=== PATIENT | female | born 1980 | race Caucasian/White ===

== ENCOUNTER 2017-07-30 23:18 | Day surgery (SDC) | payer SELFPAY ==
[2017-07-30 23:49] VITALS: BMI 21.9
--- NOTE | 2017-07-31 00:31 | PDOC.LDHP ---
Labor and Delivery H&P Chief complaint: abdominal pain HPI: 37 y/o at 21w0d, patient of Dr. Gauthier, presents with bilateral inguinal pain, suprapubic pain, and low back pain that radiates down her legs. She is also concerned that her "cervix is disappearing." She denies VB, LOF, ctx, UTI sx, or decreased FM. ROS neg for HEENT, cv, pulm, gi, gu, neuro, psych, skin, musculoskeletal, or constitutional symptoms other than mentioned above. OB History Details: 1 prior term 9 years ago. Current complications: other (ASB) Past Medical History: Umbilical hernia Current medications: pre-nishi vitamins Previous surgical history: none Allergies/Adverse Reactions: Allergies Allergy/AdvReac Type Severity Reaction Status Date / Time No Known Allergies Allergy Unverified 07/30/17 23:39 Social history: none - Physical Exam Vital signs reviewed and normal: yes General: NAD, resting Lungs: nonlabored breathing Abdomen: gravid Extremeties: no edema FHT: category 1 (160s) - Vaginal Exam cm dilated: 0 Effacement: 0% Station: -3 - Assessment 37 y/o at 21w0d with musculoskeletal discomforts of . status reassuring with +FHTs. - Plan -: Will send for UA since history of asymptomatic bacturia. D/c home with precautions. Advised to keep follow up appointment as scheduled or before then if needed.
[2017-07-31 01:13] LABS: Bilirubin Negative (Negative); Blood, Urine Negative (Negative); Clarity CLOUDY (Clear); Glucose, Urine (Dipstick) Negative (Negative); Leukocyte Negative (Negative); Nitrite Negative (Negative); Protein, Urine (Dipstick) Negative (Neg-Trace); Specific Gravity, Urine 1.014 (1.002-1.036); Urobilinogen 0.2 mg/dL (0.2-1.0); pH, Urine 7.5 (5.0-9.0)
[2017-07-31 01:15] LABS: Bacteria/HPF None Seen HPF (None Seen); Hyaline Casts/LPF 0-3 HYALINE CAST LPF (0-3 Hyaline); Pathc Cast-AUWi Flag 0.29 (0-2.49); RBC/HPF 0-3 HPF (0-3); Squamous Epithelial 0-3 HPF (0-3); WBC/HPF 0-3 HPF (0-3)
== END 2017-07-31 00:40 | disposition home or self-care (01) ==
LOC: L&D/OP 23:18
PROVIDERS: ATTEND Obstetrics & Gynecology
DX: O26.892 Other specified pregnancy related conditions, second trimester (principal); Z3A.21 21 weeks gestation of pregnancy; Z79.899 Other long term (current) drug therapy
CPT/HCPCS: 81001; 87086; 99282

== ENCOUNTER 2017-11-25 21:02 | Inpatient (IN) | payer OTHER ==
[~2017-11-25 21:02] MED LIST: Bupivacaine 0.25% HCL 30 ML VIAL ONE; ePHEDrine/0.9% NaCl/PF SYRINGE 50 mg/10 ml ONE
[2017-11-25 21:36] VITALS: BMI 26.3
[2017-11-25 21:45] LABS: Amnisure Test RUPTURE DETECTED (No Rupture)
[2017-11-25 21:46] LABS: Amnisure Internal Control QC ACCEPTABLE (ACCEPTABLE)
[2017-11-25] MEDS ORDERED: Promethazine HCl 25 MG/ML VIAL IM PRN (22:08)
[2017-11-25] MEDS ORDERED: Ondansetron HCl/PF 4 MG/2 ML Vial IVP PRN (22:08)
[2017-11-25] MEDS ORDERED: Butorphanol Tartrate 1 MG/ML VIAL SLOW IVP PRN (22:08)
[2017-11-25] MEDS ORDERED: Lidocaine 1% (PF) 30 ML VIAL SC PRN (22:08)
[2017-11-25] MEDS ORDERED: HYDROcodone/Acetaminophen 5/325 mg Tablet PO PRN ×2 (22:08)
[2017-11-25] MEDS ORDERED: Ibuprofen 800 MG TAB PO PRN (22:08)
[2017-11-25] MEDS ORDERED: NS / Oxytocin 40 units/1000ml 1,000 ML IV PRN (22:08)
[2017-11-25] MEDS ORDERED: Acetaminophen 500 MG TAB PO PRN (22:08)
[2017-11-25] MEDS ORDERED: Penicillin G Potassium 5 MILL.UNITS in Sodium Chloride 0.9% 100 ML IVPB SCH (22:15)
[2017-11-25] MEDS ORDERED: NS w/ Oxytocin 10 units 500 ML IV SCH (22:15)
[2017-11-25] MEDS ORDERED: Lactated Ringer's 1,000 ML IV SCH (22:15)
--- NOTE | 2017-11-25 22:16 | PDOC.LDHP ---
Labor and Delivery H&P Chief complaint: loss of fluid HPI: 37 yo WF c/o LOF since 5 pm today. Denies bleeding or decreased FM. Current gestational age (weeks): 37 Due date: 12/16/17 Dating criteria: last menstrual period Grav: 3 Para: 1 OB History Details: PNC with Dr. Gauthier w/o complications. Current complications: none Abnormal US findings: No Past Medical History: None Current medications: pre-nishi vitamins, other (Macrodantin) Previous surgical history: none Allergies/Adverse Reactions: Allergies Allergy/AdvReac Type Severity Reaction Status Date / Time No Known Allergies Allergy Unverified 07/30/17 23:39 Social history: none - Physical Exam Vital signs reviewed and normal: yes Abnormal vital signs: Initial BP= 140/96 General: NAD Lungs: nonlabored breathing Abdomen: gravid Extremeties: trace edema FHT: variability present [place] contractions every: No UCs seen - Vaginal Exam cm dilated: 3 Effacement: 50% Station: -1 - OB Labs Blood type: A RH: negative Antibody Screen: negative HIV: negative RPR: negative HEPSAg: negative 1 hour GCT: negative GBS: unknown - Assessment L&D Assessment: term rupture in membranes - Plan Plan: admit to L&D, labor augmentation if indicated, GBS antibiotic prophylaxis (Observe for onset of labor in next 2-3 hours, start pitocin if needed. Check labs, watch BP closely.)
[2017-11-25] MEDS: Lactated Ringer's 1,000 ML IV SCH (22:25)
[2017-11-25 22:45] LABS: Mean Corpuscular HGB CONC 35.5 g/dL (32.0-36.0); Mean Corpuscular Hemoglobin 33.9 pg (27.0-31.0); Mean Corpuscular Volume 95.3 fL (78.0-98.0); Mean Platelet Volume 7.5 fL (7.4-10.4); Platelet Count 216 thou/uL (130-400); RBC Distribution Width 12.5 % (11.5-14.5); Red Blood Cell (RBC) Count 3.54 mill/uL (4.20-5.40); White Blood Cell (WBC) Count 11.3 thou/uL (4.8-10.8)
[2017-11-25 22:46] LABS: Bilirubin Negative (Negative); Blood, Urine Negative (Negative); Clarity CLEAR (Clear); Glucose, Urine (Dipstick) Negative (Negative); Leukocyte Negative (Negative); Nitrite Negative (Negative); Protein, Urine (Dipstick) Negative (Neg-Trace); Specific Gravity, Urine 1.011 (1.002-1.036); Urobilinogen 0.2 mg/dL (0.2-1.0)
[2017-11-25 22:49] LABS: Bacteria/HPF None Seen HPF (None Seen); Hyaline Casts/LPF 0-3 HYALINE CAST LPF (0-3 Hyaline); Pathc Cast-AUWi Flag 0.58 (0-2.49); RBC/HPF 0-3 HPF (0-3); Squamous Epithelial 0-3 HPF (0-3); WBC/HPF 0-3 HPF (0-3)
[2017-11-25 23:01] LABS: ALT (SGPT) 10 U/L (8-55); AST (SGOT) 14 U/L (5-34); Albumin 3.5 g/dL (3.5-5.0); Alkaline Phosphatase 181 U/L (40-150); Anion Gap 16 mmol/L (10-20); BUN (Urea Nitrogen) 8 mg/dL (7.0-18.7); Bilirubin, Total 0.3 mg/dL (0.2-1.2); Calc. Creatinine Clearance 111 mL/min (70-130); Carbon Dioxide 19 mmol/L (22-29); Chloride 107 mmol/L (98-107); Estimated GFR-MDRD Greater than 90; Globulin 2.9 g/dL (2.4-3.5); Glucose 71 mg/dL (70-105); Potassium 3.5 mmol/L (3.5-5.1); Protein, Total 6.4 g/dL (6.0-8.3); Sodium 138 mmol/L (136-145)
--- NOTE | 2017-11-25 23:14 | PDOC.EVN ---
Event Note - Event Note Event Note: BPs remain elevated, now 150/96. Denies PANIAGUA or visual changes. CBC, LFTs and UA pending. Will start Mg now with pitocin to follow.
[2017-11-25 23:17] LABS: Syphilis Antibody Nonreactive (Nonreactive); Syphilis Antibody Index 0.04 S/CO (<1.00 Non-Reactive)
[2017-11-25] MEDS ORDERED: Magnesium Sulfate 20 GM/WATER 500 ML BAG IVPB SCH (23:30)
[2017-11-25] MEDS ORDERED: Magnesium Sulfate 20 gm/500 ml 20 GM/500 ML BAG IVPB SCH (23:50)
[2017-11-26 00:12] LABS: HBSAg Index 0.22 S/CO (0-0.99); HIV (1/2) Antibody/Antigen Non-Reactive (NonReactive); HIV 1/2 INDEX 0.09 S/CO (<1.00); Hep B Surf Ag Non-Reactive S/CO (NonReactive)
[2017-11-26] MEDS ORDERED: Bupivacaine 0.5% 20 ML, fentaNYL Citrate/PF 400 MCG in Sodium Chloride 0.9% 72 ML EPIDURAL SCH (03:00)
[2017-11-26] MEDS ORDERED: DISCONTINUE ALL PREVIOUS NARCOTICS FS SCH (03:00)
[2017-11-26] MEDS: Penicillin G 2.5 MILL.units 2.5 MILL.UNITS in Premix Bag 1 BAG IVPB SCH ×3 (03:02→16:09)
[2017-11-26] MEDS ORDERED: Naloxone HCl 0.4 mg/ml Vial IVP PRN ×2 (04:35)
[2017-11-26] MEDS ORDERED: ePHEDrine/0.9% NaCl/PF SYRINGE 50 mg/10 ml SLOW IVP PRN (04:35)
[2017-11-26] MEDS ORDERED: Lactated Ringer's 500 ML IV PRN (04:35)
[2017-11-26] MEDS ORDERED: diphenhydrAMINE 50 MG/ML VIAL IVP PRN (04:35)
[2017-11-26] MEDS ORDERED: Promethazine HCl 25 MG/ML VIAL IM PRN (04:35)
[2017-11-26] MEDS ORDERED: Eucerin (Mineral Oil/Petrolatum,White) 30 gm Jar TOP PRN (04:35)
[2017-11-26] MEDS ORDERED: Acetaminophen 325 MG TAB PO PRN (04:35)
[2017-11-26] MEDS ORDERED: Ondansetron HCl/PF 4 MG/2 ML Vial IVP PRN ×2 (04:35→15:15)
[2017-11-26] MEDS ORDERED: Communication Order-Pharmacy FS SCH (04:45)
[2017-11-26] MEDS ORDERED: fentaNYL Citrate/PF 400 MCG, Bupivacaine 0.5% 20 ML in Sodium Chloride 0.9% 72 ML EPIDURAL SCH (04:45)
--- NOTE | 2017-11-26 05:10 | PDOC.EVN ---
Event Note - Event Note Event Note: Pitocin started at [place]. Comfortable now with epidural. Bps much improved on Mg. Last exam /-2. Fhts reassuring. UCs q 4-5 mins.
[2017-11-26] MEDS: Lactated Ringer's 1,000 ML IV SCH ×2 (05:34→16:09)
--- NOTE | 2017-11-26 11:41 | PDOC.OPDEL ---
OB Operative/Delivery Note Delivery Dr/Surgeon: Ronald; Attending: Dr. Gauthier Pre-Delivery Diagnosis: ruptured membrane (term) Weeks gestation: 37 Anesthesia: epidural - Findings A Sex: male - 1 min: 8 - 5 min: 9 - Additional Findings/Plan Placenta delivered: spontaneous Repaired Obstetrical Laceration: episiotomy Estimated blood loss: 365 Compilations/Other Findings: Delivering Physician: Dr. Verma Attending: Abrahan Procedure: Spontaneous Vaginal Delivery Anesthesia: epidural EBL:365 ml Pre-op Diagnosis: 1. Term intrauterine 2. Prelabor rupture of membranes 3. Gestational Hypertension 4. Advanced Maternal Age Post-op Diagnosis: 1. Term intrauterine , delivered 2. Prelabor rupture of membranes 3. Gestational Hypertension 4. Advanced Maternal Age Indications: A 37 y/o female presents with rupture of membranes at term , admitted for PROM and induction of labor. Delivery Note: This is 37 yo F @ 37wks who delivered a viable M infant at 1123 on 11/26/17. Following an uneventful antepartum course, a vigorous male was delivered in the occipitoanterior position following a midline episiotomy. Anterior Shoulder and then remainder of the body delivered. Nuchal cord X2. The head was held down and mouth and nares were bulb suctioned. Cord clamped and cut and cord blood collected. Placenta delivered intact with a 3 vessel cord noted. Fundal massage was performed and the fundus was firm. First degree perineal laceration noted and repaired with a 2-0 chromic suture in the usual fashion with good approximation and hemostasis. Infant went to nursery in good condition for routine care. Apgars were 8/9 at 1 & 5 minutes, respectively. Patient tolerated delivery well and went to after routine recovery/care. Post delivery plan: routine recovery
[2017-11-26] MEDS ORDERED: Milk Of Magnesia 30 ML UDCUP PO PRN (15:15)
[2017-11-26] MEDS ORDERED: diphenhydrAMINE 25 MG CAP PO PRN (15:15)
[2017-11-26] MEDS ORDERED: Benzocaine/Menthol 20-0.5% 60 ML CAN TOP PRN (15:15)
[2017-11-26] MEDS ORDERED: NS / Oxytocin 40 units/1000ml 1,000 ML IV SCH (15:15)
[2017-11-26] MEDS ORDERED: HYDROcodone/Acetaminophen 5/325 mg Tablet PO PRN (15:15)
[2017-11-26] MEDS ORDERED: Lanolin Ointment 7 GM TUBE TOP PRN (15:15)
[2017-11-26] MEDS ORDERED: Zolpidem Tartrate 5 MG TAB PO PRN (15:15)
[2017-11-26] MEDS ORDERED: Preparation H Ointment 28 GM TUBE PR PRN (15:15)
[2017-11-26] MEDS ORDERED: Bisacodyl 10 MG SUPP PR PRN (15:15)
[2017-11-26] MEDS: HYDROcodone/Acetaminophen 5/325 mg Tablet PO PRN ×2 (15:56→21:49)
[2017-11-26] MEDS: Ferrous Sulfate 325 MG TAB PO SCH (17:44)
[2017-11-26] MEDS: Ibuprofen 800 MG TAB PO SCH (21:48)
[2017-11-26] MEDS: Docusate Calcium (SURFAK) 240 MG CAP PO SCH (21:48)
[2017-11-27] MEDS: Ibuprofen 800 MG TAB PO SCH ×3 (05:20→21:05)
[2017-11-27] MEDS: Docusate Calcium (SURFAK) 240 MG CAP PO SCH ×2 (08:22→21:05)
[2017-11-27] MEDS: Prenatal Vitamin 1 TAB PO SCH (08:22)
[2017-11-27] MEDS: Ferrous Sulfate 325 MG TAB PO SCH ×2 (08:22→10:51)
[2017-11-27] MEDS ORDERED: Measles/Mumps/Rubella 10 MCG/0.5 ML VIAL SC ONE (09:00)
[2017-11-27] MEDS ORDERED: Adacel (T-DAP) 0.5 ML VIAL IM ONE (09:00)
[2017-11-28] MEDS: Ibuprofen 800 MG TAB PO SCH (05:35)
--- NOTE | 2017-11-28 08:16 | PDOC.PP ---
Post Progress Note Post Day #: 2 PO intake tolerated: yes Flatus: yes Ambulation: yes Vital Signs (12 hours) Temp Pulse Resp BP 11/27/17 20:50 98.6 F 91 20 151/73 H Weight Weight 144 lb - Physical Examination General: NAD Cardiovascular: no m/r/g, RRR Respiratory: clear to auscultation bilaterally Abdominal: lochia, no distention Extremities: negative homans (B) Neurological: no gross focal deficits Psychiatric: A&Ox3, normal affect (begin labetalol. following bp at home. will fu as an outpatient) Result Diagrams: 11/25/17 22:35 11/25/17 22:35 Additional Labs: Post Labs Blood Type A NEGATIVE 11/25/17 22:35 Hep Bs Antigen Non-Reactive S/CO (NonReactive) 11/25/17 22:35
[2017-11-28] MEDS: Ferrous Sulfate 325 MG TAB PO SCH (08:20)
[2017-11-28 08:49] VITALS: BP 138/86; TEMP 97.9
[2017-11-28] MEDS ORDERED: Labetalol 100 MG TAB PO SCH (09:00)
[2017-11-28] MEDS: Prenatal Vitamin 1 TAB PO SCH (09:46)
[2017-11-28] MEDS: Docusate Calcium (SURFAK) 240 MG CAP PO SCH (09:47)
== END 2017-11-28 10:55 | disposition home or self-care (01) | DRG 775 ==
LOC: L&D/OP 21:02 → L&D 22:05 → 3SW 11-26 14:58
PROVIDERS: ADMIT Obstetrics & Gynecology; ATTEND Obstetrics & Gynecology
PROC: 3E033VJ Introduction of Other Hormone into Peripheral Vein, Percutaneous Approach (ICD-10-PCS; 2017-11-25)
PROC: 10E0XZZ Delivery of Products of Conception, External Approach (ICD-10-PCS; principal; 2017-11-26)
PROC: 0HQ9XZZ Repair Perineum Skin, External Approach (ICD-10-PCS; 2017-11-26)
PROC: 0W8NXZZ Division of Female Perineum, External Approach (ICD-10-PCS; 2017-11-26)
DX: O70.0 First degree perineal laceration during delivery (principal); O13.4 Gestational [pregnancy-induced] hypertension without significant proteinuria, complicating childbirth; Z3A.37 37 weeks gestation of pregnancy; O69.81X0 Labor and delivery complicated by cord around neck, without compression, not applicable or unspecified; Z37.0 Single live birth
CPT/HCPCS: 36415; 51702; 80053; 81001; 84112; 85027; 85461; 86780; 86850; 86870; 86900; 86901; 87340; 87389; 90384; 96372; J2001; J2540; J3010; J3475; J3490; J7050; S0020

== ENCOUNTER 2018-01-09 13:22 | Outpatient (CLI) | payer OTHER ==
[2018-01-09 14:32] LABS: #Eosinphils 0.2 thou/uL (0.0-0.7); #Lymphocytes 2.6 thou/uL (1.20-3.40); #Monocytes 0.3 thou/uL (0.11-0.59); #Neutrophils 2.2 thou/uL (1.40-6.50); %Basophils 0.9 % (0.0-1.0); %Eosinophils 3.9 % (0.0-10.0); %Lymphocytes 48.8 % (21.0-51.0); %Monocytes 5.6 % (0.0-10.0); %Neutrophils 40.9 % (42.0-75.0); Hemoglobin 12.5 g/dL (12.0-16.0); Mean Corpuscular Hemoglobin 31.6 pg (27.0-31.0); Mean Corpuscular Volume 95.5 fL (78.0-98.0); Mean Platelet Volume 7.6 fL (7.4-10.4); Platelet Count 310 thou/uL (130-400); Red Blood Cell (RBC) Count 3.96 mill/uL (4.20-5.40); White Blood Cell (WBC) Count 5.3 thou/uL (4.8-10.8)
[2018-01-09 14:52] LABS: Anion Gap 12 mmol/L (10-20); BUN (Urea Nitrogen) 9 mg/dL (7.0-18.7); Calc. Creatinine Clearance 0 mL/min (70-130); Carbon Dioxide 22 mmol/L (22-29); Chloride 109 mmol/L (98-107); Estimated GFR-MDRD 80; Glucose 86 mg/dL (70-105); Potassium 3.9 mmol/L (3.5-5.1); Sodium 139 mmol/L (136-145)
[2018-01-09 14:53] LABS: BHCG - Serum Negative (NEGATIVE); Pregs Control Background? CLEAR/WHITE (CLR/WHITE); Pregs Control Bar Appear? YES (CONTROL BAR)
== END 2018-01-09 13:23 | disposition home or self-care (01) ==
LOC: LABBT 13:22
PROVIDERS: ATTEND Surgery
DX: Z01.812 Encounter for preprocedural laboratory examination (principal); K42.9 Umbilical hernia without obstruction or gangrene
CPT/HCPCS: 80048; 84703; 85025

== ENCOUNTER 2018-01-17 08:15 | Day surgery (SDC) | payer OTHER ==
[2018-01-09 13:24] VITALS: BMI 21.4
[2018-01-17] MEDS ORDERED: CEFAZOLIN/Water 2 GM/20 ML SYRINGE ONE (08:24)
[2018-01-17] MEDS ORDERED: Bupivacaine/Epinephrine 0.25% 30 ML VIAL ONE (09:07)
[2018-01-17] MEDS ORDERED: Fentanyl 100 MCG/2 ML VIAL ONE ×2 (09:19→10:27)
[2018-01-17] MEDS ORDERED: HYDROcodone/Acetaminophen 5/325 mg Tablet ONE (11:22)
[2018-01-17] MEDS ORDERED: Ondansetron HCl/PF 4 MG/2 ML Vial ONE (13:12)
[2018-01-17] MEDS ORDERED: Dexamethasone 20 MG/5 ML VIAL ONE (13:12)
[2018-01-17] MEDS ORDERED: Lidocaine 1% PF 5 ML VIAL ONE (13:12)
[2018-01-17] MEDS ORDERED: PROPOFOL 200 MG/20 ML VIAL ONE (13:12)
--- NOTE | 2018-01-17 20:27 | OP ---
DATE OF PROCEDURE: 01/17/2018 PREOPERATIVE DIAGNOSIS: Umbilical hernia. POSTOPERATIVE DIAGNOSIS: Umbilical hernia. PROCEDURES PERFORMED: Umbilical hernia repair with mesh, Ventralex ST 4 cm. SURGEON: Jay Moya M.D. ANESTHESIA: General. ESTIMATED BLOOD LOSS: Minimal. COMPLICATIONS: None. SPECIMEN: None. FINDINGS: Umbilical hernia. TECHNIQUE: The patient was taken to the operating room and placed supine on the table. After genera l anesthetic was obtained, the abdomen was prepped and draped in a sterile fashion. Curved incision was made below the umbilicus. Cautery was used to dissect down to and amputate the umbilical stalk e xposing the umbilical defect. The edges of the defect were dissected back to the fascia. The preper itoneal space was bluntly dissected through the defect using a wet unraveled Ray-Pedro. The Ventralex ST 4 cm mesh was brought into the sterile field, was placed in the preperitoneal space, pulled up fla t against the posterior abdominal wall. The tails were laid out lateral. The tails were sewn via U stitch of permanent braided suture to the fascia laterally, superiorly, and inferiorly. The tails we re then cut at the level of the fascia. The wound was irrigated. Local anesthetic was applied. The fascia was closed loosely over the mesh. The umbilical stalk was tacked back down using 3-0 Vicryl. The skin was closed using 3-0 Vicryl, 4-0 Monocryl, and Dermabond. The patient was en route to rec overy in stable condition. All instrument counts, needle counts, lap counts were correct.
== END 2018-01-17 11:40 | disposition home or self-care (01) ==
LOC: SDC 08:15
PROVIDERS: ATTEND Surgery
PROC: 0WUF0JZ Supplement Abdominal Wall with Synthetic Substitute, Open Approach (ICD-10-PCS; principal; 2018-01-17)
DX: K42.9 Umbilical hernia without obstruction or gangrene (principal); F17.210 Nicotine dependence, cigarettes, uncomplicated; Z79.899 Other long term (current) drug therapy
CPT/HCPCS: 96374; J3010